=== PATIENT | female | born 1995 ===

== ENCOUNTER 2016-12-09 13:21 | Emergency (ER) | payer OTHER ==
[2016-12-09] MEDS ORDERED: Sulfamethox/Trimethoprim DS 800/160* TAB PO ONE (15:22)
--- NOTE | 2016-12-09 15:29 | UC ---
Skin Complaint HPI - HPI Summary HPI Summary: BEGAN HAVING ABSCESS IN RIGHT ARMPIT, LAST WEEK, OCCURED AFTER STOPPING SHAVING AND TRYING A CHEMICAL HAIR REMOVAL AGENT. CAME IN FOR EVALUATION BUT ABSCESS BEGAN TO SPONTANEOUSLY DRAIN WHILE IN WAITING ROOM. HAS NOT TAKEN ANYTHING FOR CONDITION - History of Current Complaint Chief Complaint: UCSkin Time Seen by Provider: 12/09/16 14:58 Stated Complaint: WOUND CHECK Hx Obtained From: Patient Hx Last Menstrual Period: November Onset/Duration: Gradual Onset, Lasting Weeks, Worse Since - TODAY, BEGAN TO DRAIN Skin Exposure Onset/Duration: Weeks Ago Onset Severity: Moderate Current Severity: Moderate Location: Discrete - RIGHT AXILLA Character: Swelling, Redness, Raised, Painful Aggravating: Touch Alleviating: Unknown Associated Signs & Symptoms: Positive: Fever, Drainage, Tenderness Related History: Possible Reaction to: Environmental Exposure - Allergy/Home Medications Allergies/Adverse Reactions: Allergies Allergy/AdvReac Type Severity Reaction Status Date / Time No Known Allergies Allergy Verified 12/09/16 14:53 Home Medications: Home Medications Ibuprofen [Advil] 200 mg PO 12/09/16 [History] Review of Systems Constitutional: Negative Skin: Other - DRAINING ABSCESS RIGHT AXILLA Eyes: Negative ENT: Negative Respiratory: Negative Cardiovascular: Negative Gastrointestinal: Negative Genitourinary: Negative Motor: Negative Neurovascular: Negative Musculoskeletal: Negative Neurological: Negative Psychological: Negative All Other Systems Reviewed And Are Negative: Yes PMH/Surg Hx/FS Hx/Imm Hx Previously Healthy: Yes Endocrine History Of: Denies: Diabetes, Thyroid Disease Cardiovascular History Of: Denies: Cardiac Disorders, Hypertension Respiratory History Of: Denies: COPD, Asthma GI/ History Of: Denies: Ulcer - Surgical History Surgical History: None - Family History Known Family History: Negative: Diabetes, Other - NO MRSA - Social History Occupation: Student Lives: With Family Alcohol Use: None Substance Use Type: None Smoking Status (MU): Never Smoked Tobacco Physical Exam Triage Information Reviewed: Yes Appearance: Well-Appearing, Well-Nourished, Pain Distress - MILD Vital Signs: Initial Vital Signs Temp 99.1 F 12/09/16 14:41 Pulse 89 12/09/16 14:41 Resp 16 12/09/16 14:41 BP 127/68 12/09/16 14:41 Pulse Ox 100 12/09/16 14:41 Vital Signs Reviewed: Yes Eye Exam: Normal Eyes: Positive: Conjunctiva Clear ENT Exam: Normal ENT: Positive: Normal ENT inspection, Hearing grossly normal, Pharynx normal, TMs normal Dental Exam: Normal Neck exam: Normal Neck: Positive: Supple, Nontender, No Lymphadenopathy. Negative: Nuchal Rigidity, Enlarged Nodes @ Respiratory Exam: Normal Respiratory: Positive: Chest non-tender, Lungs clear, Normal breath sounds, No respiratory distress, No accessory muscle use Cardiovascular Exam: Normal Cardiovascular: Positive: RRR, No Murmur, Pulses Normal Abdominal Exam: Normal Abdomen Description: Positive: Nontender, No Organomegaly Musculoskeletal Exam: Normal Musculoskeletal: Positive: Strength Intact, ROM Intact Neurological Exam: Normal Psychological Exam: Normal Psychological: Positive: Normal Response To Family Skin: Positive: Other - DRAINING RIGHT AXILLARY ABSCESS 3CM X 2CM. ABSCESS CULTURED AT CLINICAL VISIT. Course/Dx - Differential Diagnoses - Skin Complaint Differential Diagnoses: Abscess, Cellulitis, Lymphadenitis, MRSA - Diagnoses Provider Diagnoses: RIGHT AXILLARY ABSCESS Discharge - Discharge Plan Condition: Stable Disposition: HOME Prescriptions: Sulfamethox/Trimethoprim DS* [Bactrim DS 800/160 TAB*] 1 tab PO BID #[id number] tab Patient Education Materials: Abscess (ED) Referrals: [facility] [Outside] [facility] [Outside]
== END 2016-12-09 15:10 | disposition home or self-care (01) ==
LOC: UCEAST 13:21
DX: L02.411 Cutaneous abscess of right axilla (principal)
CPT/HCPCS: 87070; 87076; 87185; 87205; 99202; A9270-GY; G0463